=== PATIENT | female | born 1975 | race African-American/Black ===

== ENCOUNTER 2016-12-27 15:18 | Emergency (ER) | payer MEDICARE, MEDICAID ==
[~2016-12-27] VITALS: Ht 170.2 cm; Wt 150.1 kg
[~2016-12-27 15:18] MED LIST: ATOR20TA; DOXY-216 PO; FERR325T PO; HYDR12.56; LEVO25TA9; LISI-709
[2016-12-27 16:08] VITALS: BP 140/88
[2016-12-27] MEDS ORDERED: methylPREDNISolone SOD SUCC 125 MG/2 ML VL IM ONE (17:15)
[2016-12-27] MEDS ORDERED: KETOROLAC TROMETH 60MG/2ML VIAL IM ONE (17:15)
== END 2016-12-27 18:18 | disposition home or self-care (01) ==
LOC: ER 15:18
DX: J32.0 Chronic maxillary sinusitis (principal); G44.209 Tension-type headache, unspecified, not intractable; J45.909 Unspecified asthma, uncomplicated
CPT/HCPCS: 70450; 96372; 99284; J1885; J2930

== ENCOUNTER 2017-05-07 10:30 | Emergency (ER) | payer MEDICARE, MEDICAID ==
[~2017-05-07] VITALS: Ht 170.2 cm; Wt 151.1 kg
[~2017-05-07 10:30] MED LIST changes: +FERR-20 PO; -FERR325T PO
[2017-05-07 11:15] LABS: Basophils # (auto) 0 uL; Eosinophils # (auto) 0.1 uL; Lymphocytes # (auto) 2.3 uL; Monocytes # (auto) 0.4 uL; White Blood Cell 5.8 10^3/uL (4.4-10.8)
[2017-05-07 11:16] LABS: Basophils % (auto) 0.4 % (0.0-2.0); Eosinophils % (auto) 1.3 % (0.0-7.0); Hematocrit 36.8 % (36.0-46.0); Hemoglobin 11.8 g/dL (12.2-16.2); Mean Corpuscular Hemoglobin 25.9 pg (28.0-32.0); Mean Corpuscular Hgb Conc. 32.1 g/dL (32.0-36.0); Mean Corpuscular Volume 80.6 fL (80.0-100.0); Monocytes % (auto) 6.8 % (0.0-12.0); Neutrophils % (auto) 51.5 % (37.0-80.0); Nucleated Red Blood Cells % 0.2 %; Platelet Count (auto) 219 10^3/uL (140-450); Red Blood Cells 4.57 10^6/uL (4.0-5.20); Red Cell Distribution Width 16.6 % (11.8-14.3)
[2017-05-07 11:38] LABS: Albumin 3.4 g/dL (3.4-5.0); BUN/Creatinine Ratio 9.7; Bilirubin, Total 0.2 mg/dL (0.2-1.0); Calcium 8.8 mg/dL (8.5-10.1); Potassium 4.1 mmol/L (3.5-5.1)
[2017-05-07 12:51] LABS: Urine WBC None Seen /hpf (0 - 5)
[2017-05-07 13:16] LABS: Urine Bacteria NONE SEEN /hpf (None Seen); Urine Blood Negative /uL (Negative); Urine Specific Gravity 1.012 (1.001-1.035)
[2017-05-07 14:25] VITALS: BP 138/72
== END 2017-05-07 16:30 | disposition home or self-care (01) ==
LOC: ER 10:30
DX: K42.9 Umbilical hernia without obstruction or gangrene (principal); E66.01 Morbid (severe) obesity due to excess calories; J45.909 Unspecified asthma, uncomplicated; Z88.8 Allergy status to other drugs, medicaments and biological substances; Z68.43 Body mass index [BMI] 50.0-59.9, adult; Z88.1 Allergy status to other antibiotic agents; Z88.0 Allergy status to penicillin
CPT/HCPCS: 36415; 74176; 80053; 81001; 81025; 85025

== ENCOUNTER 2017-08-19 14:41 | Emergency (ER) | payer MEDICARE, MEDICAID ==
[~2017-08-19] VITALS: Ht 170.2 cm; Wt 142.9 kg
[2017-08-19 15:36] LABS: Basophils # (auto) 0 uL; Eosinophils # (auto) 0.2 uL; Lymphocytes # (auto) 2.3 uL; Monocytes # (auto) 0.4 uL; Monocytes % (auto) 5.1 % (0.0-12.0)
[2017-08-19 15:38] LABS: Basophils % (auto) 0.7 % (0.0-2.0); Eosinophils % (auto) 2.9 % (0.0-7.0); Hematocrit 33.9 % (36.0-46.0); Lymphocytes % (auto) 32.9 % (10.0-50.0); Mean Corpuscular Hgb Conc. 32.5 g/dL (32.0-36.0); Neutrophils # (auto) 4.2 uL; Neutrophils % (auto) 58.4 % (37.0-80.0); Nucleated Red Blood Cells % 0.2 %; Platelet Count (auto) 224 10^3/uL (140-450); Red Blood Cells 4.23 10^6/uL (4.0-5.20); Red Cell Distribution Width 17.2 % (11.8-14.3); White Blood Cell 7.1 10^3/uL (4.4-10.8)
[2017-08-19 15:50] LABS: Albumin 3.2 g/dL (3.4-5.0); BUN/Creatinine Ratio 8.9; Bilirubin, Total 0.2 mg/dL (0.2-1.0); Calcium 8.4 mg/dL (8.5-10.1); Potassium 3.9 mmol/L (3.5-5.1); Total Protein 7.7 g/dL (6.4-8.2)
[2017-08-19] MEDS ORDERED: ONDANSETRON ODT 4 MG TAB PO ONE (19:00)
[2017-08-19] MEDS ORDERED: ACETAMINOPHEN 325 MG TAB PO ONE (19:00)
[2017-08-19] MEDS ORDERED: HYDROcodone-ACET 10/325MG TAB PO ONE (19:00)
[2017-08-19 21:23] LABS: Urine Bacteria NONE SEEN /hpf (None Seen); Urine Blood 3+ /uL (Negative); Urine Mucus FEW (None Seen); Urine Specific Gravity 1.025 (1.001-1.035); Urine WBC 10 /hpf (0 - 5)
[2017-08-19] MEDS ORDERED: KETOROLAC TROMETH 60MG/2ML VIAL IM ONE (22:00)
[2017-08-19] MEDS ORDERED: cefTRIAXone SOD 1,000 MG VL IM ONE (22:30)
[2017-08-19 23:57] VITALS: BP 123/85
== END 2017-08-20 00:15 | disposition home or self-care (01) ==
LOC: ER 14:53
DX: N93.9 Abnormal uterine and vaginal bleeding, unspecified (principal); G43.909 Migraine, unspecified, not intractable, without status migrainosus; D64.9 Anemia, unspecified; N39.0 Urinary tract infection, site not specified; Z88.0 Allergy status to penicillin; Z88.1 Allergy status to other antibiotic agents; Z79.899 Other long term (current) drug therapy
CPT/HCPCS: 36415; 76830; 76856; 80053; 81001; 85025; 96372; 99285; J0696; J1885; Q0162; 81025

== ENCOUNTER 2018-10-28 13:01 | Emergency (ER) | payer OTHER, MEDICAID ==
[~2018-10-28] VITALS: Ht 170.2 cm; Wt 154.2 kg
[2018-10-28 14:23] LABS: Eosinophils # (auto) 0.1 uL; Hematocrit 32.5 % (36.0-46.0); Hemoglobin 10.6 g/dL (12.2-16.2); Monocytes # (auto) 0.3 uL
[2018-10-28 14:24] LABS: Basophils # (auto) 0.1 uL; Eosinophils % (auto) 2.1 % (0.0-7.0); Lymphocytes # (auto) 2.2 uL; Lymphocytes % (auto) 40.3 % (10.0-50.0); Mean Corpuscular Hemoglobin 25.9 pg (28.0-32.0); Mean Corpuscular Hgb Conc. 32.7 g/dL (32.0-36.0); Mean Corpuscular Volume 79.3 fL (80.0-100.0); Monocytes % (auto) 5.9 % (0.0-12.0); Neutrophils # (auto) 2.8 uL; Neutrophils % (auto) 50.7 % (37.0-80.0); Nucleated Red Blood Cells % 0.1 %; Platelet Count (auto) 240 10^3/uL (140-450); Red Blood Cells 4.09 10^6/uL (4.0-5.20); Red Cell Distribution Width 16.5 % (11.8-14.3); White Blood Cell 5.5 10^3/uL (4.4-10.8)
[2018-10-28 14:46] LABS: Alanine Aminotransferase 33 U/L (13-56); Albumin 3.3 g/dL (3.4-5.0); Anion Gap 5 (5-15); Aspartate Aminotransferase 30 U/L (15-37); BUN/Creatinine Ratio 9.3; Blood Urea Nitrogen 7 mg/dL (7-18); Calcium 8.9 mg/dL (8.5-10.1); Carbon Dioxide 29 mmol/L (21-32); Chloride 106 mmol/L (98-107); GFR African American 110 mL/min; GFR Non-African American 91 mL/min; Glucose 82 mg/dL (74-106); Potassium 3.7 mmol/L (3.5-5.1); Sodium 140 mmol/L (136-145)
[2018-10-28 14:50] LABS: Alkaline Phosphatase 55 U/L (45-117); Bilirubin, Total 0.2 mg/dL (0.2-1.0); Total Protein 7.7 g/dL (6.4-8.2)
[2018-10-28] MEDS ORDERED: KETOROLAC TROMETH 30 MG/ML 1ML VIAL IV ONE (16:45)
[2018-10-28] MEDS ORDERED: ASPirin 81 mg TAB PO ONE (16:45)
[2018-10-28 18:11] VITALS: BP 138/69
== END 2018-10-28 18:13 | disposition home or self-care (01) ==
LOC: ER 13:03
DX: R07.89 Other chest pain (principal); E66.01 Morbid (severe) obesity due to excess calories; I10 Essential (primary) hypertension; E46 Unspecified protein-calorie malnutrition; D50.9 Iron deficiency anemia, unspecified; E03.9 Hypothyroidism, unspecified; E78.00 Pure hypercholesterolemia, unspecified; Z88.0 Allergy status to penicillin; Z88.1 Allergy status to other antibiotic agents; Z88.8 Allergy status to other drugs, medicaments and biological substances; Z79.2 Long term (current) use of antibiotics; Z79.899 Other long term (current) drug therapy
CPT/HCPCS: 36415; 71046; 80053; 83735; 84443; 84484; 85025; 85379; 93005; 96374; 99284; J1885

== ENCOUNTER 2019-04-01 12:59 | Emergency (ER) | payer OTHER, MEDICAID ==
[~2019-04-01] VITALS: Ht 170.2 cm; Wt 149.7 kg
[~2019-04-01 12:59] MED LIST changes: -DOXY-216 PO; +DOXY-286 PO
[2019-04-01 13:44] LABS: Basophils # (auto) 0.1 uL; Eosinophils # (auto) 0.1 uL; Lymphocytes # (auto) 2.5 uL; Monocytes # (auto) 0.6 uL; Monocytes % (auto) 9.4 % (0.0-12.0); Neutrophils # (auto) 3.2 uL; Red Blood Cells 5.01 10^6/uL (4.0-5.20)
[2019-04-01 13:47] LABS: Basophils % (auto) 1.1 % (0.0-2.0); Eosinophils % (auto) 1.7 % (0.0-7.0); Hematocrit 40.5 % (36.0-46.0); Hemoglobin 13.2 g/dL (12.2-16.2); Lymphocytes % (auto) 38.5 % (10.0-50.0); Mean Corpuscular Hemoglobin 26.4 pg (28.0-32.0); Mean Corpuscular Hgb Conc. 32.7 g/dL (32.0-36.0); Mean Corpuscular Volume 80.9 fL (80.0-100.0); Neutrophils % (auto) 49.3 % (37.0-80.0); Nucleated Red Blood Cells % 0.2 %; Platelet Count (auto) 241 10^3/uL (140-450); Red Cell Distribution Width 16.8 % (11.8-14.3); White Blood Cell 6.6 10^3/uL (4.4-10.8)
[2019-04-01 14:06] LABS: Albumin 3.9 g/dL (3.4-5.0); Anion Gap 13 (5-15); Blood Urea Nitrogen 6 mg/dL (7-18); Calcium 9.6 mg/dL (8.5-10.1); Carbon Dioxide 23 mmol/L (21-32); Chloride 100 mmol/L (98-107); Glucose 74 mg/dL (74-106); Potassium 3.7 mmol/L (3.5-5.1); Sodium 136 mmol/L (136-145)
[2019-04-01 14:11] LABS: Urine Bacteria NONE SEEN /hpf (None Seen); Urine Blood 3+ /uL (Negative); Urine Hyaline Cast MOD /lpf (0 - 2); Urine Mucus FEW (None Seen); Urine Specific Gravity 1.017 (1.001-1.035); Urine WBC 97 /hpf (0 - 5)
[2019-04-01 14:11] LABS: Alanine Aminotransferase 25 U/L (13-56); Alkaline Phosphatase 48 U/L (45-117); Aspartate Aminotransferase 26 U/L (15-37); BUN/Creatinine Ratio 7.3; Bilirubin, Total 0.5 mg/dL (0.2-1.0); GFR African American 98 mL/min; GFR Non-African American 81 mL/min; Total Protein 8.8 g/dL (6.4-8.2)
[2019-04-01] MEDS ORDERED: ASPirin 81 mg TAB PO ONE (14:30)
[2019-04-01 14:47] LABS: INR 1.08 (0.9-1.15)
[2019-04-01 15:03] LABS: Partial Thromboplastin Time 33.5 sec (23.64-32.05)
[2019-04-01 18:19] VITALS: BP 146/82
== END 2019-04-01 18:26 | disposition home or self-care (01) ==
LOC: ER 12:59
DX: R07.89 Other chest pain (principal); N39.0 Urinary tract infection, site not specified; R06.02 Shortness of breath; E78.5 Hyperlipidemia, unspecified; I10 Essential (primary) hypertension; E07.9 Disorder of thyroid, unspecified; Z88.1 Allergy status to other antibiotic agents; Z88.0 Allergy status to penicillin; Z88.8 Allergy status to other drugs, medicaments and biological substances
CPT/HCPCS: 36415; 71046; 80053; 81001; 84443; 84484; 85025; 85610; 85730; 93005

== ENCOUNTER 2020-01-10 16:35 | Emergency (ER) | payer OTHER, MEDICAID ==
[~2020-01-10] VITALS: Ht 170.2 cm; Wt 158.8 kg
[2020-01-10 17:48] LABS: Basophils # (auto) 0 10 ^3/uL (0-0.2); Eosinophils # (auto) 0.1 10 ^3/uL (0-0.8); Neutrophils # (auto) 3.4 10 ^3/uL (1.6-8.6); White Blood Cell 6.8 10^3/uL (4.4-10.8)
[2020-01-10 17:50] LABS: Basophils % (auto) 0.4 % (0.0-2.0); Eosinophils % (auto) 1.7 % (0.0-7.0); Hematocrit 34.3 % (36.0-46.0); Hemoglobin 11.1 g/dL (12.2-16.2); Lymphocytes # (auto) 2.8 10 ^3/uL (0.4-5.4); Lymphocytes % (auto) 41.8 % (10.0-50.0); Mean Corpuscular Hemoglobin 25.4 pg (28.0-32.0); Mean Corpuscular Hgb Conc. 32.5 g/dL (32.0-36.0); Mean Corpuscular Volume 78.1 fL (80.0-100.0); Monocytes # (auto) 0.5 10 ^3/uL (0-1.3); Monocytes % (auto) 6.8 % (0.0-12.0); Neutrophils % (auto) 49.3 % (37.0-80.0); Nucleated Red Blood Cells % 0.2 %; Platelet Count (auto) 216 10^3/uL (140-450); Red Blood Cells 4.38 10^6/uL (4.0-5.20); Red Cell Distribution Width 18.4 % (11.8-14.3)
[2020-01-10 18:02] LABS: Albumin 3.5 g/dL (3.4-5.0); Calcium 9.2 mg/dL (8.5-10.1)
[2020-01-10 18:07] LABS: Bilirubin, Total 0.3 mg/dL (0.2-1.0); Total Protein 8.1 g/dL (6.4-8.2)
[2020-01-10 19:45] VITALS: BP 129/78
[2020-01-10 20:48] LABS: Urine Bacteria FEW /hpf (None Seen); Urine Blood Negative /uL (Negative); Urine Hyaline Cast FEW /lpf (0 - 2); Urine Specific Gravity 1.007 (1.001-1.035); Urine WBC 10 /hpf (0 - 5)
== END 2020-01-10 20:23 | disposition home or self-care (01) ==
LOC: ER 16:35
DX: K59.00 Constipation, unspecified (principal); K64.9 Unspecified hemorrhoids; K80.80 Other cholelithiasis without obstruction; I10 Essential (primary) hypertension; E78.5 Hyperlipidemia, unspecified; Z88.0 Allergy status to penicillin; Z88.1 Allergy status to other antibiotic agents; Z79.899 Other long term (current) drug therapy
CPT/HCPCS: 36415; 74176; 80053; 81001; 85025

== ENCOUNTER → 2020-10-18 | Outpatient (CLI) | payer OTHER, MEDICAID | END | disposition home or self-care (01) | LOC: Rad HDHVI 16:00 | PROVIDERS: ATTEND Internal Medicine Cardiovascular Disease | DX: I10 Essential (primary) hypertension (principal); E78.00 Pure hypercholesterolemia, unspecified | CPT/HCPCS: 93306 ==

== ENCOUNTER → 2020-10-19 | Outpatient (CLI) | payer OTHER, MEDICAID ==
[~2020-10-19] MED LIST changes: +IOHEXOL 350 MG/ML 100ML IJ ONE
[2020-10-19 08:30] VITALS: BP 161/89
[2020-10-19 09:25] VITALS: BP 159/87
== END | disposition home or self-care (01) ==
LOC: Rad HDHVI 08:14
PROVIDERS: ATTEND Internal Medicine Cardiovascular Disease
DX: R06.02 Shortness of breath (principal); R07.9 Chest pain, unspecified
CPT/HCPCS: 71275; G0463; Q9967

== ENCOUNTER → 2020-10-19 | Outpatient (CLI) | payer MEDICAID ==
[~2020-10-19] MED LIST changes: -IOHEXOL 350 MG/ML 100ML IJ ONE
== END | disposition home or self-care (01) ==
LOC: LAB 13:34
PROVIDERS: ATTEND Nurse Practitioner Family
DX: Z20.822 Contact with and (suspected) exposure to COVID-19 (principal)
CPT/HCPCS: C9803; U0003

== ENCOUNTER → 2020-10-20 | Outpatient (CLI) | payer MEDICAID ==
[~2020-10-20] VITALS: Ht 170.2 cm; Wt 164.7 kg
== END | disposition home or self-care (01) ==
LOC: Rad HDHVI 08:14
PROVIDERS: ATTEND Internal Medicine Cardiovascular Disease
DX: I10 Essential (primary) hypertension (principal); E78.00 Pure hypercholesterolemia, unspecified; R07.9 Chest pain, unspecified; R42 Dizziness and giddiness; Z82.49 Family history of ischemic heart disease and other diseases of the circulatory system
CPT/HCPCS: 78452; 93017; 96374; A9500

== ENCOUNTER 2021-06-29 17:41 | Emergency (ER) | payer MEDICARE, MEDICAID ==
[~2021-06-29] VITALS: Ht 170.2 cm; Wt 165.6 kg
[2021-06-29] MEDS ORDERED: CETI1TAB36 PO (20:30)
[2021-06-29] MEDS ORDERED: ALBU108A5 IN (20:30)
[2021-06-29 20:49] VITALS: BP 150/96
== END 2021-06-29 20:53 | disposition home or self-care (01) ==
LOC: ER 17:41
DX: J30.9 Allergic rhinitis, unspecified (principal); J45.909 Unspecified asthma, uncomplicated; I10 Essential (primary) hypertension; E03.9 Hypothyroidism, unspecified; E78.5 Hyperlipidemia, unspecified; Z86.2 Personal history of diseases of the blood and blood-forming organs and certain disorders involving the immune mechanism; Z79.899 Other long term (current) drug therapy; Z79.2 Long term (current) use of antibiotics; Z88.0 Allergy status to penicillin; Z88.1 Allergy status to other antibiotic agents; Z88.8 Allergy status to other drugs, medicaments and biological substances

== ENCOUNTER → 2023-09-08 | Outpatient (CLI) | payer OTHER, MEDICAID ==
[~2023-09-08] MED LIST changes: +ALBU108A5 IN; +CETI1TAB36 PO; -FERR-20 PO; +FERR325T24 PO; -HYDR12.56; +HYDR12.59; +IBUP-1455 PO
[2023-09-08 14:34] LABS: Basophils # (auto) 0 10 ^3/uL (0-0.2); Basophils % (auto) 0.5 % (0.0-2.0); Eosinophils # (auto) 0.1 10 ^3/uL (0-0.8); Eosinophils % (auto) 1.5 % (0.0-7.0); Hematocrit 36.9 % (36.0-46.0); Hemoglobin 12.2 g/dL (12.2-16.2); Lymphocytes # (auto) 2.6 10 ^3/uL (0.4-5.4); Lymphocytes % (auto) 42.7 % (10.0-50.0); Mean Corpuscular Hemoglobin 27.5 pg (28.0-32.0); Mean Corpuscular Volume 83.3 fL (80.0-100.0); Monocytes # (auto) 0.3 10 ^3/uL (0-1.3); Monocytes % (auto) 5.1 % (0.0-12.0); Neutrophils % (auto) 50.2 % (37.0-80.0); Red Blood Cells 4.43 10^6/uL (4.0-5.20); Red Cell Distribution Width 15.1 % (11.8-14.3)
[2023-09-08 15:08] LABS: Alanine Aminotransferase 27 U/L (7-40); Albumin 4.5 g/dL (3.2-4.8); Alkaline Phosphatase 58 U/L (46-116); Anion Gap 3 (5-15); Aspartate Aminotransferase 22 U/L (13-40); BUN/Creatinine Ratio 11.3 (10.0-20.0); Blood Urea Nitrogen 9 mg/dL (9-23); Calcium 10.1 mg/dL (8.5-10.1); Carbon Dioxide 30 mmol/L (20-30); Chloride 105 mmol/L (98-107); Glucose 89 mg/dL (74-106); Magnesium 1.8 mg/dL (1.6-2.6); Potassium 4.2 mmol/L (3.5-5.1); Sodium 138 mmol/L (136-145)
[2023-09-08 15:09] LABS: Bilirubin, Total 0.4 mg/dL (0.2-1.0); Total Protein 7.7 g/dL (5.7-8.2)
== END | disposition home or self-care (01) ==
LOC: LAB 14:10
PROVIDERS: ATTEND Nurse Practitioner Family
DX: R07.89 Other chest pain (principal); I10 Essential (primary) hypertension
CPT/HCPCS: 36415; 80053; 83735; 84443; 85025

== ENCOUNTER 2023-10-29 08:21 | Emergency (ER) | payer OTHER, MEDICAID ==
[~2023-10-29] VITALS: Ht 170.2 cm; Wt 164.8 kg
[2023-10-29] MEDS: diphenhdrAMINE HCL 50 MG/1 ML VL IV ONE (09:45)
[2023-10-29] MEDS: KETOROLAC TROMETH 30 MG/ML 1ML VIAL IV ONE (09:45)
[2023-10-29] MEDS: PROCHLORPERAZINE EDISYLATE 5 MG/ML 2ML VIAL IV ONE (09:45)
[2023-10-29 09:47] VITALS: BP 168/99; PULSE 78; RESP 16; TEMP 97.6; O2SAT 97
[2023-10-29] MEDS: SODIUM CHLORIDE 0.9% 1,000 ML IV ONE (10:23)
[2023-10-29] MEDS ORDERED: GUAI600T78 PO (12:56)
[2023-10-29] MEDS: DexAMETHasone SOD PHOS 10MG/1ML VIAL INJ IM ONE (13:07)
== END 2023-10-29 13:13 | disposition home or self-care (01) ==
LOC: ER 08:21
DX: G89.29 Other chronic pain (principal); R51.9 Headache, unspecified; E78.5 Hyperlipidemia, unspecified; I10 Essential (primary) hypertension
CPT/HCPCS: 96360; 96361; 96372; 99283; J0780; J1100; J1200; J1885; J7030

== ENCOUNTER → 2023-12-25 | Outpatient (CLI) | payer OTHER, MEDICAID, MEDICARE ==
[~2023-12-25] MED LIST changes: +GUAI600T78 PO
[2023-12-25 14:45] LABS: Basophils # (auto) 0.1 10 ^3/uL (0-0.2); Basophils % (auto) 1.1 % (0.0-2.0); Eosinophils # (auto) 0.1 10 ^3/uL (0-0.8); Eosinophils % (auto) 1.9 % (0.0-7.0); Hematocrit 37.1 % (36.0-46.0); Hemoglobin 12.5 g/dL (12.2-16.2); Lymphocytes # (auto) 2.6 10 ^3/uL (0.4-5.4); Lymphocytes % (auto) 47.7 % (10.0-50.0); Mean Corpuscular Hemoglobin 28.4 pg (28.0-32.0); Mean Corpuscular Hgb Conc. 33.6 g/dL (32.0-36.0); Mean Corpuscular Volume 84.6 fL (80.0-100.0); Monocytes # (auto) 0.3 10 ^3/uL (0-1.3); Monocytes % (auto) 5.8 % (0.0-12.0); Neutrophils # (auto) 2.4 10 ^3/uL (1.6-8.6); Neutrophils % (auto) 43.5 % (37.0-80.0); Nucleated Red Blood Cells % 0.1 %; Platelet Count (auto) 200 10^3/uL (140-450); Red Blood Cells 4.39 10^6/uL (4.0-5.20); Red Cell Distribution Width 15.7 % (11.8-14.3); White Blood Cell 5.4 10^3/uL (4.4-10.8)
[2023-12-25 15:05] LABS: Alanine Aminotransferase 35 U/L (7-40); Albumin 4.2 g/dL (3.2-4.8); Alkaline Phosphatase 62 U/L (46-116); Anion Gap 5 (5-15); Aspartate Aminotransferase 27 U/L (13-40); Blood Urea Nitrogen 8 mg/dL (9-23); Calcium 10.1 mg/dL (8.7-10.4); Carbon Dioxide 30 mmol/L (20-31); Chloride 106 mmol/L (98-107); Cholesterol 203 mg/dL (< 200); Glucose 85 mg/dL (74-106); LDL Cholesterol 155 mg/dL (< 100); Potassium 4.8 mmol/L (3.5-5.1); Sodium 141 mmol/L (136-145); Triglycerides 116 mg/dL (< 150)
[2023-12-25 15:06] LABS: Bilirubin, Total 0.3 mg/dL (0.2-1.0); HDL Cholesterol 41 mg/dL (40-59); Total Protein 7.4 g/dL (5.7-8.2)
== END | disposition home or self-care (01) ==
LOC: LAB 14:15
PROVIDERS: ATTEND Internal Medicine
DX: E78.00 Pure hypercholesterolemia, unspecified (principal); E03.9 Hypothyroidism, unspecified; E55.9 Vitamin D deficiency, unspecified
CPT/HCPCS: 36415; 80053; 80061; 82306; 84443; 85025

== ENCOUNTER → 2024-03-08 | Outpatient (CLI) | payer OTHER, MEDICAID ==
[~2024-03-08] VITALS: Ht 170.2 cm; Wt 162.4 kg
== END | disposition home or self-care (01) ==
LOC: Rad HDHVI 12:51
PROVIDERS: ATTEND Internal Medicine Cardiovascular Disease
DX: R06.02 Shortness of breath (principal); I50.33 Acute on chronic diastolic (congestive) heart failure; R07.89 Other chest pain; I10 Essential (primary) hypertension; E11.65 Type 2 diabetes mellitus with hyperglycemia; E78.00 Pure hypercholesterolemia, unspecified; Z82.49 Family history of ischemic heart disease and other diseases of the circulatory system
CPT/HCPCS: 78452; 93017; 96374; A9500

== ENCOUNTER 2024-10-14 09:05 | Day surgery (SDC) | payer OTHER, MEDICAID ==
[2024-10-12 10:23] LABS: Urine Protein, UAD Negative (Negative)
[2024-10-12 10:29] LABS: INR 0.95 (0.9-1.15); Partial Thromboplastin Time 30.9 SEC (24.5-34.5); Prothrombin Time 10.1 sec (9.3-11.8)
[2024-10-12 10:32] LABS: Alanine Aminotransferase 40 U/L (7-40); Albumin 4.3 g/dL (3.2-4.8); Alkaline Phosphatase 62 U/L (46-116); Anion Gap 8 (5-15); BUN/Creatinine Ratio 10.5 (10.0-20.0); Blood Urea Nitrogen 9 mg/dL (9-23); Calcium 9.3 mg/dL (8.7-10.4); Carbon Dioxide 27 mmol/L (20-31); Chloride 105 mmol/L (98-107); Potassium 4.0 mmol/L (3.5-5.1); Sodium 140 mmol/L (136-145); Total Protein 7.2 g/dL (5.7-8.2)
[2024-10-12 10:54] LABS: Bilirubin, Total 0.3 mg/dL (0.2-1.0); Glucose 112 mg/dL (74-106)
[2024-10-12 11:19] LABS: Hematocrit 38.8 % (36.0-46.0); Hemoglobin 13.2 g/dL (12.2-16.2); Mean Corpuscular Hemoglobin 29.6 pg (28.0-32.0); Mean Corpuscular Volume 87.1 fL (80.0-100.0); Nucleated Red Blood Cells % 0.3 %
[~2024-10-14] VITALS: Ht 170.2 cm; Wt 166.9 kg
[~2024-10-14 09:05] MED LIST changes: -ALBU108A5 IN; -ATOR20TA; -CETI1TAB36 PO; -DOXY-286 PO; -FERR325T24 PO; -GUAI600T78 PO; -HYDR12.59; +HYDR1TAB97 PO; -IBUP-1455 PO; -LEVO25TA9; +LEVO75CA3 PO; -LISI-709; +LISI10TA34 PO
[2024-10-14] MEDS ORDERED: PROPOFOL 10 MG/ML 20 ML IV ONE ×2 (10:36→10:40)
[2024-10-14] MEDS ORDERED: LIDOCAINE 2% (LOCAL ANESTH.) PF 5ml SDV ONE (10:36)
[2024-10-14 10:56] VITALS: PULSE 66; RESP 12; TEMP 97.9; O2SAT 100
--- NOTE | 2024-10-14 10:56 | DVHHP2 ---
GI H&P Pre-Op Assessment Date: 10/14/24 Chief complaint: Abdominal pain, nausea, constipation, colon cancer screening HPI: per clinic note Past medical history: per clinic note Past surgical history: per clinic note Family history: per clinic note Physical exam: General: NAD, AAOX3 HEENT: PERRL, no scleral icterus, normal hearing, gums without lesions or bleeding, oropharynx clear without erythema or exudate. Neck: Supple without enlargement of the thyroid, or lymphadenopathy. Chest: Normal size and shape, no tenderness, lung hdz clear to auscultation and percussion, nonlabored breathing. Heart: RRR, no murmur Abdomen: non-distended, no tenderness to palpation, +BS, no hepatosplenomegaly Extremities: no edema Neurological: CN II-XII intact, sensation intact in all extremities, 5+ strength in all extremities Skin: No rashes, No jaundice Assessment: - Abdominal pain, nausea, constipation, colon cancer screening Plan: - EGD - Colonoscopy - Risks (bleeding, infection, perforation, reaction to sedation medications and cardiopulmonary arrest) and benefit of the procedure were explained to patient. Patient agrees to undergo the procedure. PRASANTH HENSLEY MD Oct 14, 2024 10:56
--- NOTE | 2024-10-14 10:57 | DVHOP2 ---
Operative Report DATE OF OPERATION: 10/14/24 PROCEDURE: Upper Endoscopy. PREOPERATIVE INDICATION: The patient is a 49 -year-old female undergoing endoscopy for abdominal pain and nausea. POSTOPERATIVE DIAGNOSES: 1. Mild gastritis PROCEDURE PERFORMED BY: Channing Poole SCOPE: Olympus videoendoscope. ASA CLASS: 3 PREOPERATIVE MEDICATIONS: MAC with Evans GEORGE PROCEDURE IN DETAIL: After obtaining an informed consent, the patient was placed on her back. The patient was then sedated with the above medications. A bite block was placed between her teeth. The endoscope was then passed through the oropharynx, into the esophagus, and through the stomach and pylorus up to the second and third part of the duodenum. The duodenum was normal in appearance. There was mild gastritis. Gastric biopsies were obtained using cold forceps. The GE junction was normal in appearance at 36 cm. The esophagus was normal in appearance. The endoscope was then withdrawn. The patient tolerated the procedure well without difficulty. COMPLICATIONS : None SPECIMENS: Gastric biopsies DISPOSITION: D/C to home PLAN: 1. Await for biopsy result CHANNING POOLE MD Oct 14, 2024 10:57
--- NOTE | 2024-10-14 10:59 | DVHOP2 ---
Operative Report DATE OF OPERATION: 10/14/24 PROCEDURE: Colonoscopy. PREOPERATIVE INDICATION: The patient is a 49 -year-old female undergoing colonoscopy for constipation and colon cancer screening. POSTOPERATIVE DIAGNOSES: 1. Three 2-mm sigmoid colon polyps were removed with cold biopsy forceps. 2. A 2 mm rectosigmoid colon polyp was removed with cold biopsy forceps. PROCEDURE PERFORMED BY: Channing Poole M.D. SCOPE: Olympus videocolonoscope. ASA CLASS: 3 PREOPERATIVE MEDICATIONS: MAC with Evans DORIS PROCEDURE IN DETAIL: After obtaining an informed consent, the patient was placed on left lateral decubitus position. She was then sedated with the above medications. A rectal examination was performed that was normal. The colonoscope was then passed through the anus into the rectosigmoid and through the descending, transverse, and ascending colon up to the cecum with visualization of the appendiceal orifice, base of the cecum and the ileocecal valve. Three 2 mm sigmoid colon polyps were removed with cold biopsy forceps. A 2 mm rectosigmoid colon polyp was removed with cold biopsy forceps. The colonoscope was then withdrawn. The patient tolerated the procedure well without difficulty. WITHDRAWAL TIME: 8 minutes QUALITY OF THE PREP: [place] Bowel Prep score: 6 COMPLICATIONS : None SPECIMENS: Colon polyps DISPOSITION: D/C to home PLAN: 1. Repeat colonoscopy base on biopsy result CHANNING POOLE MD Oct 14, 2024 10:59
--- NOTE | 2024-10-14 11:00 | DVHDS2 ---
Physician Discharge Progress N Final Diagnosis: Mild gastritis Colon polyps Operations or Procedures: Operations or Procedures EGD with cold biopsies Colonoscopy with cold biopsy polypectomy Condition on Discharge: Good Disposition: Home Discharge Instructions: Diet: Regular Activity: No Restrictions, As Tolerated Medications: Resume with previous home medications Follow Up Care: Discharge Statement: "Patient was advised to return to the ER or call 911 if any headaches, dizziness, shortness of breath, chest pain, abdominal pain, bleeding, fevers, or worsening of medical condition. Patient was counseled about treatment plan, medications, possible side effects, patientverbalized understanding. All questions were answered to the best of my ability. This discharge took greater then 30 minutes in planning, reviewing documentation, counseling the patient, and discussing with other team members." PRASANTH HENSLEY MD Oct 14, 2024 10:59
[2024-10-14 11:16] VITALS: BP 133/89; PULSE 64; RESP 20; O2SAT 96
== END 2024-10-14 11:22 | disposition home or self-care (01) ==
LOC: GI 09:05 → EDUNIT# 11:45
PROVIDERS: ATTEND Internal Medicine Gastroenterology
DX: K59.00 Constipation, unspecified (principal); R10.9 Unspecified abdominal pain; K63.5 Polyp of colon; K62.1 Rectal polyp; K29.50 Unspecified chronic gastritis without bleeding; B96.81 Helicobacter pylori [H. pylori] as the cause of diseases classified elsewhere; K31.A0 Gastric intestinal metaplasia, unspecified; K63.89 Other specified diseases of intestine; E11.9 Type 2 diabetes mellitus without complications; E03.9 Hypothyroidism, unspecified; E66.01 Morbid (severe) obesity due to excess calories; G43.909 Migraine, unspecified, not intractable, without status migrainosus; I10 Essential (primary) hypertension; J45.909 Unspecified asthma, uncomplicated; Z79.899 Other long term (current) drug therapy; Z87.891 Personal history of nicotine dependence; K21.9 Gastro-esophageal reflux disease without esophagitis; Z68.43 Body mass index [BMI] 50.0-59.9, adult; Z88.0 Allergy status to penicillin; Z88.8 Allergy status to other drugs, medicaments and biological substances
CPT/HCPCS: 36415; 43239; 45380; 80053; 81001; 82962; 84702; 85025; 85610; 85730; 88305; 88342; J2003; J2704; J7030